=== PATIENT | female | born 1965 | race Caucasian/White ===

== ENCOUNTER 2018-08-10 16:43 | Inpatient (IN) | payer OTHER ==
[2018-08-10] MEDS ORDERED: 0.9 % SODIUM CHLORIDE 1000ML 1,000 ML IV PRN (16:54)
[2018-08-10] MEDS ORDERED: ALBUTEROL SULFATE (0.083%) 2.5 MG/3 ML NEB INH PRN (16:54)
[2018-08-10] MEDS ORDERED: ACETAMINOPHEN 325 MG TAB PO PRN (16:54)
--- NOTE | 2018-08-10 17:25 | History & Physical ---
History of Present Illness - Date of Service Date of Service for History & Physical: 08/10/18 - History of Present Illness Admitting Diagnosis: LLL pneumonia. Hypoxia History of Present Illness: Ayesha Weaver is a 53 y/o female presenting to [facility] for 3 week history of fever, cough, fatigue, and weakness. She is a current every day smoker, denies any previous hx of COPD or asthma. Does not use O2 at home. Past medical history includes insomnia, breast cancer s/p mastectomy, anxiety and depression. While in [facility] CXR LLL pneumonia, WBC 13.2, CMP unremarkable, D-Dimer 3.46- no recent surgeries, no active metastatic process, no recent long travels. Upon arrival SPO2 85% RA. She was placed on 4L O2 with SPO2 87-88%. Is mouth breathing, subsequently placed on 40% venti-mask. Albuterol nebulizer, Solumedrol 125mg IM given prior to transfer to the floor. Case discussed with Dr Andrew and will admit to inpatient for LLL pneumonia and hypoxia 08/10/12- Acutely ill, laying on exam table. Is easily arousable, in no obvious respirator distress. No improvement after receiving solumedrol, albuterol nebulizer. Review of Systems Constitutional: Reports: Chills, Malaise, Weakness Eyes: Reports: As per HPI. Denies: Eye discharge, Eye pain, Photophobia, Vision change ENT: Reports: Congestion Respiratory: Reports: Cough, Dyspnea Cardiovascular: Denies: Chest pain, Edema, Palpitations, Syncope Endocrine: Reports: Fatigue Gastrointestinal: Denies: Abdominal pain, Constipation, Diarrhea, Nausea, Vomiting Genitourinary: Denies: Discharge, Dysuria, Frequency, Urgency Musculoskeletal: Reports: Back pain (chronic) Skin: Reports: As per HPI. Denies: Bruising, Change in color, Change in hair/ nails, Lesions, Pruritus, Rash Neurological: Reports: Weakness. Denies: Confusion, Numbness Psychiatric: Reports: As per HPI. Denies: Anxiety, Auditory hallucinations, Depression, Homicidal thoughts, Suicidal thoughts, Visual hallucinations Hematological/Lymphatic: Reports: As per HPI H&P Meds/Allergies - Allergies Allergies: Allergies Allergy/AdvReac Type Severity Reaction Status Date / Time cephalexin monohydrate Allergy Unknown Unverified 08/10/18 14:08 [From [facility]] - Active Medications Active Medications: Current Medications Acetaminophen (Tylenol 325mg) 650 mg PO Q4H PRN PRN Reason: PAIN - MILD(1-4)/FEVER Albuterol Sulfate (Albuterol Sulfate) 2.5 mg INH RESP.Q2H PRN PRN Reason: DIFFICULTY IN BREATHING Albuterol/Ipratropium (Duoneb) 3 ml INH RESP.Q4H.WA [facility] Alprazolam (Xanax) 1 mg PO TID PRN PRN Reason: ANXIETY Azithromycin (Zithromax) 500 mg PO DAILY [facility] Benzonatate (Tessalon) 100 mg PO TID PRN PRN Reason: COUGH Enoxaparin Sodium (Lovenox) 40 mg SC DAILY [facility] Sodium Chloride () 1,000 mls @ 100 mls/hr IV .Q10H PRN PRN Reason: LARGE VOLUME IV CEFTRIAXONE 1GM/50ML BAG (Ceftriaxone 1 Gm-D5w Bag) 1 gm in 50 mls @ 100 mls/ hr IVPB Q12H [facility] Propranolol HCl (Inderal) 20 mg PO Q8HR [facility] Tramadol HCl (Ultram) 50 mg PO TID PRN PRN Reason: PAIN - MILD TO MODERATE (1-7) Trazodone HCl (Desyrel) 50 mg PO QHS [facility] Venlafaxine HCl (Effexor Xr) 75 mg PO DAILY [facility] Physical Exam - General General Appearance: Alert, Oriented x3, Other (acutely ill and fatigued, easily arousable ) Limitations: No limitations - Head Head exam: Atraumatic, Normocephalic - Eye Eye exam: Normal appearance, PERRL - ENT ENT exam: Mucous membranes moist Nasal Exam: Other (turbinates engorged, clear nasal discharge) Mouth exam: Normal external inspection Teeth exam: Normal inspection Throat exam: Other (pharyngeal erythema) - Neck Neck exam: Normal inspection - Respiratory Respiratory exam: Decreased breath sounds. negative: Respiratory distress, Wheezes - Cardiovascular Cardiovascular Exam: Regular rate, Normal rhythm, Normal heart sounds - GI/Abdominal GI/Abdominal exam: Soft, Normal bowel sounds - Extremities Extremities exam: Normal inspection. negative: Calf tenderness - Back Back exam: Reports: Normal inspection. Denies: CVA tenderness (R), CVA tenderness (L) - Neurological Neurological exam: Alert, Oriented X3 - Psychiatric Psychiatric exam: Normal affect, Normal mood - Skin Skin exam: Dry, Intact, Normal color, Warm Results - Labs Result Diagrams: 08/11/18 06:00 08/11/18 06:00 VTE H&P Assessment - Risk for VTE Risk for VTE: Yes Risk Level: Moderate Risk Assessment Date: 08/10/18 Risk Assessment Time: 17:29 VTE Orders Placed or Will Be Placed: Yes Plan - Inpatient Certification Inpatient Certification: Admit to inpatient care: Based on my medical assessment, after consideration of patient's risk factors (age, co-morbidities and patient presenting symptoms and acuity), I expect that this patient will remain in the hospital greater than or equal to two midnights and that the services needed warrant inpatient care because: Patient Risk Factors: [extended illness, IV antibiotics, hypoxia requiring oxygen] Estimated length of stay: [48-72 hrs] The patient may reasonably be expected to be discharged or transferred to a hospital within 96 hours after admission to [facility]. Services needed: [nursing, IV antibiotics] Post hospital care (if known): [] I certify that my determination is in accordance with my understanding of Medicare requirements for reasonable and necessary inpatient services. 08/10/18 17:29 - Detailed Diagnosis and Plan (1) LLL pneumonia Current Visit: Yes Status: Acute Base Code: J18.1 - LOBAR PNEUMONIA, UNSPECIFIED ORGANISM Comment: 08/10/18 - Rocephin 1gm BID - Azithromycin 500mg Po QD - O2 to keep SPO2 88-92%- assuming an underlying COPD with smoking history - Duo neb Q4hr WA - Albuterol Q2hr PRN - Tessalon Perles 100mg Q8prn for cough (2) Hypoxia Current Visit: Yes Status: Acute Base Code: R09.02 - HYPOXEMIA Comment: - as above - CTA now with elevated d--dimer (3) DVT prophylaxis Current Visit: Yes Status: Acute Base Code: [id number] - Comment: 08/10/18 - Lovenox 40mg QD (4) Full code status Current Visit: Yes Status: Acute Base Code: Z78.9 - OTHER SPECIFIED HEALTH STATUS Comment: 08/10/18
[2018-08-10] MEDS: IPRATROPIUM/ALBUTEROL (0.5MG/3MG) NEB INH SCH ×2 (17:38→21:36)
[2018-08-10] MEDS ORDERED: CEFTRIAXONE 1GM/50ML BAG 1 GM/50 ML BAG IVPB SCH (18:00)
[2018-08-10] MEDS: ENOXAPARIN 40 MG/0.4 ML SYR SC SCH (18:31)
[2018-08-10] MEDS: AZITHROMYCIN 500 MG TABLET PO SCH (18:32)
[2018-08-10] MEDS: BENZONATATE 100 MG CAPSULE PO PRN (18:44)
[2018-08-10] MEDS: ALPRAZOLAM 1 MG TAB PO PRN (18:44)
[2018-08-10] MEDS: TRAMADOL HCL 50 MG TABLET PO PRN (18:45)
[2018-08-10 18:56] LABS: NTpro B-NATRIURETIC PEPTIDE 47.39 pg/mL (<125)
[2018-08-10] MEDS: NICOTINE 21 MG/24 HOUR PATCH TD SCH (20:02)
[2018-08-10] MEDS ORDERED: METHYLPREDNISOLONE PF 125MG/VIAL IVP ONE (20:55)
[2018-08-10] MEDS ORDERED: CEFTRIAXONE 1GM/50ML BAG 1 GM/50 ML BAG IVPB ONE (21:06)
[2018-08-10] MEDS: TRAZODONE 50 MG TABLET PO SCH (21:19)
[2018-08-10] MEDS: GUAIFENESIN 1,200 MG TABLET PO SCH (21:19)
[2018-08-10 21:35] LABS: INFLUENZA A NEGATIVE (NEGATIVE); INFLUENZA B NEGATIVE (NEGATIVE)
[2018-08-10] MEDS: ACETYLCYSTEINE 20% INH SCH (21:36)
[2018-08-11] MEDS: TRAMADOL HCL 50 MG TABLET PO PRN ×2 (03:22→09:53)
[2018-08-11] MEDS: IPRATROPIUM/ALBUTEROL (0.5MG/3MG) NEB INH SCH ×5 (05:55→21:43)
[2018-08-11] MEDS: ACETYLCYSTEINE 20% INH SCH (05:55)
[2018-08-11] MEDS ORDERED: PROPRANOLOL HCL 10 MG TABLET PO SCH (06:00)
[2018-08-11 06:38] LABS: BASO % 0.3 % (0-6); HEMATOCRIT 43.1 % (35.0-47.0); HEMOGLOBIN 14.4 gm/dl (11.6-16.0); LYMPH % 9.8 % (16-45); MEAN CELL VOLUME 92.3 fl (81-97); MEAN CORPUSCULAR HEMOGLOBIN 30.8 pg (27-33); MEAN CORPUSCULAR HGB CONC 33.4 g/dl (32-36); MEAN PLATELET VOLUME 9.9 fl (7.4-10.4); MONO % 2.2 % (0-9); PLATELET COUNT 535 K/uL (130-400); RED BLOOD COUNT 4.67 M/uL (3.80-5.40); RED CELL DISTRIBUTION WIDTH 14.7 % (11.5-14.5); WHITE BLOOD COUNT W/O DIFF 11.1 K/uL (4.2-12.2)
[2018-08-11 07:06] LABS: ALB/GLOB RATIO 0.8 (1.1-1.8); ALBUMIN 3.3 g/dL (4.0-5.0); ALKALINE PHOSPHATASE 119 U/L (35-104); ALT/SGPT 29 U/L (<33); AST/SGOT 17 U/L (10.0-35.0); BILIRUBIN,TOTAL < 0.20 mg/dL (0.2-1.0); BLOOD UREA NITROGEN 16 mg/dL (6-20); CREATININE 0.6 mg/dL (0.5-0.9); EST GLOMERULAR FILTRATION RATE > 60 mL/min; GLUCOSE,RANDOM 140 mg/dL (74-109); TOTAL PROTEIN 7.3 g/dL (6.6-8.7)
--- NOTE | 2018-08-11 07:25 | CT ANGIOGRAM REPORT ---
EXAM: CT ANGIOGRAM OF THE CHEST WITH CONTRAST HISTORY: SHORTNESS OF BREATH. HISTORY OF SMOKING AND BREAST CANCER. TECHNIQUE: Helical CT angiogram of the chest was obtained after the administration of intravenous contrast, the type and amount are specified in the patient's medical record. Coronal and sagittal maximum intensity projection images were obtained. Comparison: None. FINDINGS: No filling defects are identified in the pulmonary arteries. The aorta has normal caliber, moderate atherosclerosis of the descending thoracic aorta. The cardiac chambers have a normal size, moderate coronary artery calcifications. No pericardial effusion. The lung parenchyma shows bilateral lower lobe consolidation. There is mucous plugging in the airways of both lower lobes and diffuse peribronchial thickening. Moderate emphysematous changes are present. Mildly enlarged mediastinal nodes measure up to 19 mm AP diameter in the subcarinal region. Hilar nodes are also mildly enlarged. Surgical clips in the right axilla. Bony structures show no suspicious lesions. IMPRESSION: NO EVIDENCE OF PULMONARY EMBOLISM. 2. BILATERAL LOWER LOBE CONSOLIDATION. THERE ARE MODERATE EMPHYSEMATOUS CHANGES AND DIFFUSE PERIBRONCHIAL THICKENING, CONSISTENT WITH BRONCHITIS. MODERATE EMPHYSEMATOUS CHANGES ARE PRESENT. JOB NUMBER: [id number] [facility]
[2018-08-11] MEDS ORDERED: CEFTRIAXONE SODIUM 2 GM in 0.9 % SODIUM CHLORIDE 100ML 100 ML IVPB SCH (08:00)
--- NOTE | 2018-08-11 08:30 | History and Physical Report ---
DATE OF ADMISSION: 08/10/2018, 9:18 p.m. CHIEF COMPLAINT: Cough and dyspnea. HISTORY OF PRESENT ILLNESS: This 53-year-old female presented to our [facility] short of breath, cough, and congested. She stated that this has been going on for about a week and a half. Initially, she was seen at the [facility] in [place], thought it was a kidney problem with bilateral back pain. Had an ultrasound of her kidneys and a urine, which did not show any kidney infection. Things got worse about 2 days, and that it when she decided to come into our [facility] and was evaluated by Seema, and her pulse oximetry was low. She has a history of smoking cigarettes, and she has been coughing up green-yellow sputum for about a week, and getting weaker. No vomiting or diarrhea. Seema called me in the ER and said that the patient does not want to go to the emergency department because she does not want to pay the copay and was wondering if she could be direct admitted to the floor, and I said fine. She was direct admitted to the floor for pneumonia. She had a chest x-ray, which showed a left lower lobe infiltrate, and she had a CTA of the chest because a D-dimer was elevated, revealing no PE but bilateral lower lobe infiltrates. The laboratory revealed white count of 13,200. Hemoglobin is 14.9. D-dimer is 3.46. Neutrophils are 70. Bands are 0. Lymphs are 18. Potassium is 3.7. BUN is 13. Creatinine is 0.7. Her ALT was 34, alkaline phosphatase 136. ProBNP was 47. Troponin-T was less than 0.01. She had a procalcitonin of 0.04. Flu A and B were ordered when I saw the patient, and she also had 1 shot of Solu-Medrol 125 mg IM in the [facility], and I ordered another Solu-Medrol 60 mg IV. I bumped up her Rocephin to 2 grams every 12 hours, continued the azithromycin 500 mg daily. She had a DuoNeb treatment. She is requiring 45% on a venti mask, and her pulse oximetry is running 90%. Her was at the bedside, giving me most of her history. The patient stated that she felt better since being in the [facility] to the time I evaluated her at about 8:30 p.m. PAST MEDICAL HISTORY: Right breast cancer with a right mastectomy. Also, the left breast has been removed, too. Hysterectomy. She also had neck surgery with a plate, and back surgeries. She uses some narcotics for her back pain. She has some depression. She had an MRSA infection back when she had surgery at [facility] by Dr. Burgos. CURRENT MEDICATIONS: 1. Trazodone 50 mg at bedtime. 2. Tramadol 50 mg t.i.d. p.r.n. pain. 3. Xanax 1 mg t.i.d. p.r.n. 4. Effexor 75 mg daily. 5. Propranolol LA 60 mg daily. ALLERGIES: She does not have any allergies. It says Keflex on her chart, but she said she has never been allergic to Keflex, but one time it did not work. SOCIAL HISTORY: She smoked cigarettes, less than a pack a day, for 30+ years. Occasional alcohol use. No drug use. FAMILY HISTORY: Mother had cancer and heart disease. Brother and sister had heart disease. SYSTEMS REVIEW: HEENT: She has had a cough, cold, and congestion for the last 1-1/2 weeks. She denies a sore throat except when she coughs. Cardiovascular: No chest pain, palpitations. She is short of breath, and she has back pain bilaterally, most likely from the pneumonia. Respiratory: She has a cough. She has smoking history. Gastrointestinal: No nausea, vomiting, or diarrhea. She is coughing up yellow sputum. Genitourinary: No dysuria, hematuria, frequency, or burning on urination. Musculoskeletal: She has bilateral back pain. Neurologic: No CVA, paralysis, or paresthesias. Mental status is good. Endocrine: No diabetes or thyroid disease. No weight loss or weight changes. Integument: No rash, ulcers, change in moles, or yellow skin. PHYSICAL EXAMINATION: VITAL SIGNS: Height 5 feet 4 inches. Weight 149 pounds. Her pulse rate was 102 when she came in. Respiratory rate 16. Pulse oximetry 92% on a venti mask at 45% FiO2. Blood pressure 141/90. HEENT: Pupils equal, round, and reactive to light and accommodation. Extraocular muscles intact. Throat is clear, some posterior nasal drainage. NECK: Supple. No jugular venous distention. No hepatojugular reflex. No carotid bruits. LUNGS: She has rhonchi bilaterally in the posterior bases. HEART: Regular rate and rhythm without murmurs, clicks, rubs, or gallops. ABDOMEN: Soft, nontender. No hepatosplenomegaly. No masses. Bowel sounds are present. EXTREMITIES: No pitting edema, no cyanosis, no clubbing. BREASTS: Deferred. GYNECOLOGICAL: Deferred. RECTAL: Deferred. NEUROLOGIC: Cranial nerves II through XII intact. No gross defects. Sensation is normal. Strength is normal. Deep tendon reflexes are equal bilaterally. Babinski is negative. MENTAL STATUS: Alert and oriented x3. IMPRESSION: 1. Bilateral pneumonia. 2. Tobacco use. 3. History of right breast cancer with bilateral mastectomies. 4. History of chronic neck and back pain with occasional use of tramadol. 5. Anxiety and depression. PLAN: IV Rocephin 2 grams every 12 hours, oral azithromycin 500 mg daily, IV fluids cautiously, 100 mL an hour; oxygen at 45% venti mask to keep her pulse oximetry above 90%, DuoNebs every 4 hours while awake, Mucomyst 3 mL 4 times a day to help mobilize sputum, Lovenox 40 mg subcu DVT prophylaxis daily, Mucinex 600 mg b.i.d., one more shot of Solu-Medrol 60 mg IV; may continue on tomorrow if she does not improve more; nicotine patches, and her home medications of Effexor and Desyrel. MTDD
[2018-08-11] MEDS: CEFTRIAXONE SODIUM 2 GM in 0.9 % SODIUM CHLORIDE 100ML 100 ML IVPB SCH ×2 (08:56→21:58)
[2018-08-11] MEDS: ENOXAPARIN 40 MG/0.4 ML SYR SC SCH (09:49)
[2018-08-11] MEDS: VENLAFAXINE ER 75 MG CAPSULE PO SCH (09:49)
[2018-08-11] MEDS: GUAIFENESIN 1,200 MG TABLET PO SCH ×2 (09:49→22:00)
[2018-08-11] MEDS: AZITHROMYCIN 500 MG TABLET PO SCH (09:49)
[2018-08-11] MEDS: BENZONATATE 100 MG CAPSULE PO PRN (09:53)
[2018-08-11] MEDS: ALPRAZOLAM 1 MG TAB PO PRN (09:53)
[2018-08-11] MEDS ORDERED: CYCLOBENZAPRINE 10MG TABLET PO PRN (10:54)
[2018-08-11] MEDS ORDERED: ALPRAZOLAM 1 MG TAB PO PRN (11:16)
--- NOTE | 2018-08-11 11:16 | Physician Progress Note ---
Subjective - Date Date of Physician Progress Note: 08/11/18 - Subjective Subjective Comment: 08/11/18: Reports that she is breathing better, but is not 100%. Is not coughing as much as before. Having alot of pain in back d/t chronic issues. States that she also takes Robaxin 750mg TID, which has not received. Is concerned with sleeping. States that she has to take Xanax 1mg and Trazodone 50mg to sleep. Reports that she has some PTSD and has trouble sleeping because of it. Denies bowel or bladder problems. Respiratory therapist working on decreasing oxygen needs. Location: Back Severity scale (1-10): 9 Objective - Vital Signs Vital Signs: Vital Signs - Last 24 Hrs Temp Pulse Pulse Resp BP BP Pulse Ox 08/11/18 10:12 83 20 93 L 08/11/18 10:00 97.9 F 88 16 143/92 92 L 08/11/18 09:51 97.7 F 148/95 08/11/18 05:58 86 20 08/11/18 05:57 84 20 92 L 08/11/18 03:28 97.7 F 95 H 18 148/95 93 L 08/10/18 21:38 78 16 08/10/18 21:37 74 16 94 L 08/10/18 21:00 16 08/10/18 20:00 97.8 F 100 H 20 132/83 91 L 08/10/18 19:01 97 H 16 08/10/18 17:37 92 L 08/10/18 17:35 102 H 16 08/10/18 17:03 97 H 19 141/90 90 L - General General Appearance: Alert, Oriented x3, Other (acutely ill and fatigued, easily arousable ) Limitations: No limitations - Head Head exam: Atraumatic, Normocephalic - Eye Eye exam: Normal appearance, PERRL - ENT ENT exam: Mucous membranes moist Nasal Exam: Other (turbinates engorged, clear nasal discharge) Mouth exam: Normal external inspection Teeth exam: Normal inspection Throat exam: Other (pharyngeal erythema) - Neck Neck exam: Normal inspection - Respiratory Respiratory exam: Decreased breath sounds, Other (At time of assessment, was changed from Venti-mask to 15 L High-Flow nasal cannula and able to have full sentence conversations without difficulty. ). negative: Accessory muscle use, Respiratory distress, Wheezes - Cardiovascular Cardiovascular Exam: Regular rate, Normal rhythm, Normal heart sounds - GI/Abdominal GI/Abdominal exam: Soft, Normal bowel sounds - Extremities Extremities exam: Normal inspection. negative: Calf tenderness - Back Back exam: Reports: Normal inspection. Denies: CVA tenderness (R), CVA tenderness (L) - Neurological Neurological exam: Alert, Oriented X3 - Psychiatric Psychiatric exam: Normal affect, Normal mood - Skin Skin exam: Dry, Intact, Normal color, Warm Assessment and Plan - Assessment and Plan (1) Bilateral pneumonia Current Visit: Yes Status: Acute Base Code: J18.9 - PNEUMONIA, UNSPECIFIED ORGANISM Comment: 08/11/18: -CXR: BLL PNA, WBC 11.1, Neutrophils 86%, procalcitonin 0.027 -Continue IV Rocephin 2gm q. 12 hours -Continue oral Azithromycin 500mg daily -Stop IVF, pt has adequate oral intake -Respiratory therapy to continue working with nursing staff to reduce oxygen supplementation needs -Duonebs q. 4 hours while awake -Mucinex 600mg BID -Oral Prednisone 50mg daily x 5 doses -Testia akins for cough (2) Tobacco use Current Visit: Yes Status: Acute Base Code: Z72.0 - TOBACCO USE Comment: : -Continue nicotine patches (3) Chronic pain Current Visit: Yes Status: Acute Base Code: G89.29 - OTHER CHRONIC PAIN Comment: 08/11/18: -Chronic pain in neck and pain, has had several surgeries. -Continue home dose of Tramadol 50mg TID PRN -Home med Robaxin not on formulary, trial Flexeril 10mg PRN -Trial Toradol IV q. 12 hours (creatinine, GFR WNL) -Continue Tylenol 650mg PRN (4) Sleep disturbance Current Visit: Yes Status: Acute Base Code: G47.9 - SLEEP DISORDER, UNSPECIFIED Comment: 08/11/18: -Continue home med Trazodone 50mg q. HS -Trial Prazosin 2mg at HS (BP 143/92) -Schedule lower dose of Xanax at 0.25mg @ HS d/t addition of Prazosin (5) Hypoxia Current Visit: Yes Status: Acute Base Code: R09.02 - HYPOXEMIA Comment: : -Changed from Venti-mask to 15 L High-Flow nasal cannula @ approximately 1000 and able to maintain O2 sat above 92% -Nursing and Respiratory Therapy to wean off of oxygen supplementation needs -Continue IV and PO Antibiotics, steroids (now PO) and Duonebs (6) DVT prophylaxis Current Visit: Yes Status: Acute Base Code: [id number] - Comment: 08/11/18: -Continue Lovenox daily 08/10/18 - Lovenox 40mg QD (7) Full code status Current Visit: Yes Status: Acute Base Code: Z78.9 - OTHER SPECIFIED HEALTH STATUS Comment: 08/11/18: -Full Code this admission Results - Labs Result Diagrams: 08/11/18 06:04 08/11/18 06:04 Labs Last 24 Hours: Laboratory Results - last 24 hr 08/10/18 08/10/18 08/11/18 17:56 21:35 06:04 WBC 11.1 RBC 4.67 Hgb 14.4 Hct 43.1 MCV 92.3 MCH 30.8 MCHC 33.4 RDW 14.7 H Plt Count 535 H MPV 9.9 Neutrophils % 86.0 H Band Neutrophils % 2.0 Lymphocytes % 9.8 L Monocytes % 2.2 Eosinophils % 0.0 Basophils % 0.3 Lymphocytes 10.0 L Monocytes 2.0 Basophils 0.0 Eosinophil Count 0.0 Sodium Potassium Chloride Carbon Dioxide Anion Gap BUN Creatinine Estimated GFR Random Glucose Calcium Total Bilirubin AST ALT Alkaline Phosphatase Troponin T < 0.010 NT-Pro-B Natriuret Pep 47.39 Total Protein Albumin Globulin Albumin/Globulin Ratio Procalcitonin Influenza Type A Ag Negative Influenza Type B Ag Negative 08/11/18 08/11/18 06:04 06:04 WBC RBC Hgb Hct MCV MCH MCHC RDW Plt Count MPV Neutrophils % Band Neutrophils % Lymphocytes % Monocytes % Eosinophils % Basophils % Lymphocytes Monocytes Basophils Eosinophil Count Sodium 137 Potassium 4.0 Chloride 103 Carbon Dioxide 22.0 Anion Gap 12.0 BUN 16 Creatinine 0.6 Estimated GFR > 60 Random Glucose 140 H Calcium 9.1 Total Bilirubin < 0.20 L AST 17 ALT 29 Alkaline Phosphatase 119 H Troponin T NT-Pro-B Natriuret Pep Total Protein 7.3 Albumin 3.3 L Globulin 4.0 Albumin/Globulin Ratio 0.8 L Procalcitonin 0.027 Cancelled Influenza Type A Ag Influenza Type B Ag DVT/PE Assessment - Risk for VTE Risk for VTE: Yes Risk Level: Moderate Risk Assessment Date: 08/10/18 Risk Assessment Time: 17:29 VTE Orders Placed or Will Be Placed: Yes - Active Medicaitons Current Medications: Current Medications Acetaminophen (Tylenol 325mg) 650 mg PO Q4H PRN PRN Reason: PAIN - MILD(1-4)/FEVER Albuterol Sulfate (Albuterol Sulfate) 2.5 mg INH RESP.Q2H PRN PRN Reason: DIFFICULTY IN BREATHING Albuterol/Ipratropium (Duoneb) 3 ml INH RESP.Q4H.[facility] Last Admin: 08/11/18 09:59 Dose: 3 ml Alprazolam (Xanax) 1 mg PO TID PRN PRN Reason: ANXIETY Last Admin: 08/11/18 09:53 Dose: 1 mg Azithromycin (Zithromax) 500 mg PO DAILY [facility] Last Admin: 08/11/18 09:49 Dose: 500 mg Benzonatate (Tessalon) 100 mg PO TID PRN PRN Reason: COUGH Last Admin: 08/11/18 09:53 Dose: 100 mg Cyclobenzaprine HCl (Flexeril) 10 mg PO BID PRN PRN Reason: MUSCLE SPASMS Enoxaparin Sodium (Lovenox) 40 mg SC DAILY [facility] Last Admin: 08/11/18 09:49 Dose: 40 mg Guaifenesin (Mucinex) 1,200 mg PO BID [facility] Last Admin: 08/11/18 09:49 Dose: 1,200 mg Sodium Chloride () 1,000 mls @ 100 mls/hr IV .Q10H PRN PRN Reason: LARGE VOLUME IV Last Admin: 08/10/18 18:33 Dose: 100 mls/hr Ceftriaxone Sodium 2 gm/ (Sodium Chloride) 100 mls @ 200 mls/hr IVPB Q12H [facility] Stop: 08/16/18 09:01 Last Infusion: 08/11/18 09:47 Dose: Infused Ketorolac Tromethamine (Toradol) 30 mg IVP Q12H PRN PRN Reason: PAIN - MILD TO MODERATE (1-7) Nicotine (Nicotine 21mg) 1 patch TD Q24H [facility] Last Admin: 08/10/18 20:02 Dose: 1 patch Prazosin HCl (Prazosin Hcl) 2 mg PO QHS [facility] Prednisone (Prednisone 20mg) 50 mg PO DAILYWM [facility] Stop: 08/16/18 08:01 Propranolol HCl (Inderal) 20 mg PO Q8HR [facility] Last Admin: 08/11/18 05:50 Dose: 20 mg Tramadol HCl (Ultram) 50 mg PO TID PRN PRN Reason: PAIN - MILD TO MODERATE (1-7) Last Admin: 08/11/18 09:53 Dose: 50 mg Trazodone HCl (Desyrel) 50 mg PO QHS [facility] Last Admin: 08/10/18 21:19 Dose: 50 mg Venlafaxine HCl (Effexor Xr) 75 mg PO DAILY [facility] Last Admin: 08/11/18 09:49 Dose: 75 mg AMI Plan - Labs Result Diagrams: 08/11/18 06:04 08/11/18 06:04
[2018-08-11] MEDS: KETOROLAC 30 MG/ML VIAL IVP PRN (14:13)
[2018-08-11] MEDS: TRAZODONE 50 MG TABLET PO SCH (21:58)
[2018-08-11] MEDS: NICOTINE 21 MG/24 HOUR PATCH TD SCH (21:58)
[2018-08-11] MEDS: ALPRAZOLAM 0.25 MG TABLET PO SCH (21:59)
[2018-08-11] MEDS ORDERED: PRAZOSIN HCL 1 MG CAPSULE PO SCH (22:00)
[2018-08-12] MEDS: IPRATROPIUM/ALBUTEROL (0.5MG/3MG) NEB INH SCH ×5 (05:55→22:13)
[2018-08-12] MEDS: KETOROLAC 30 MG/ML VIAL IVP PRN (06:15)
[2018-08-12 07:01] LABS: HEMATOCRIT 41.9 % (35.0-47.0); HEMOGLOBIN 13.9 gm/dl (11.6-16.0); MEAN CELL VOLUME 92.1 fl (81-97); MEAN CORPUSCULAR HEMOGLOBIN 30.5 pg (27-33); MEAN CORPUSCULAR HGB CONC 33.2 g/dl (32-36); MEAN PLATELET VOLUME 9.5 fl (7.4-10.4); PLATELET COUNT 545 K/uL (130-400); RED BLOOD COUNT 4.55 M/uL (3.80-5.40)
[2018-08-12 07:10] LABS: PLATELET ESTIMATE INCREASED (NORMAL)
[2018-08-12 07:34] LABS: ALB/GLOB RATIO 0.9 (1.1-1.8); ALBUMIN 3.3 g/dL (4.0-5.0); ALKALINE PHOSPHATASE 112 U/L (35-104); ALT/SGPT 29 U/L (<33); AST/SGOT 17 U/L (10.0-35.0); BLOOD UREA NITROGEN 16 mg/dL (6-20); CREATININE 0.6 mg/dL (0.5-0.9); EST GLOMERULAR FILTRATION RATE > 60 mL/min; GLUCOSE,RANDOM 110 mg/dL (74-109)
[2018-08-12] MEDS ORDERED: PREDNISONE 20 MG TAB PO SCH (08:00)
[2018-08-12] MEDS: CEFTRIAXONE SODIUM 2 GM in 0.9 % SODIUM CHLORIDE 100ML 100 ML IVPB SCH (09:07)
[2018-08-12] MEDS: ENOXAPARIN 40 MG/0.4 ML SYR SC SCH (10:04)
[2018-08-12] MEDS: AZITHROMYCIN 500 MG TABLET PO SCH (10:04)
[2018-08-12] MEDS: VENLAFAXINE ER 75 MG CAPSULE PO SCH (10:04)
[2018-08-12] MEDS: GUAIFENESIN 1,200 MG TABLET PO SCH ×2 (10:04→22:12)
--- NOTE | 2018-08-12 14:44 | Physician Progress Note ---
Subjective - Date Date of Physician Progress Note: 08/12/18 - Subjective Subjective Comment: 08/11/18: Reports that she is breathing better, but is not 100%. Is not coughing as much as before. Having alot of pain in back d/t chronic issues. States that she also takes Robaxin 750mg TID, which has not received. Is concerned with sleeping. States that she has to take Xanax 1mg and Trazodone 50mg to sleep. Reports that she has some PTSD and has trouble sleeping because of it. Denies bowel or bladder problems. Respiratory therapist working on decreasing oxygen needs. 08/12/18 1430: Sitting up in bed, with family member at bedside. States that she is feeling a little worse today and is coughing up alot. Feels that breathing is a little easier. Reports that Toradol has helped the most of all pain medications. Would like to see Xanax, Tramadol and Toradol on a schedule so she does not have to ask for it. Is frustrated that oxygen is still at 6L. Is worried she is getting addicted to it. Denies chest pain, SOB, LE edema. No issues with bowel or bladder. Objective - Vital Signs Vital Signs: Vital Signs - Last 24 Hrs Temp Pulse Pulse Resp BP Pulse Ox 08/12/18 14:20 98 H 18 97 08/12/18 12:00 98.2 F 103 H 17 142/88 92 L 08/12/18 10:19 92 L 08/12/18 10:17 89 20 93 L 08/12/18 08:19 88 22 08/12/18 06:05 93 L 08/12/18 05:55 94 H 24 08/12/18 04:00 74 22 144/89 93 L 08/11/18 21:43 95 H 20 95 08/11/18 21:00 74 20 08/11/18 20:00 98.0 F 74 22 144/88 95 08/11/18 18:07 80 18 94 L - General General Appearance: Alert, Oriented x3, Mild distress Limitations: No limitations - Head Head exam: Atraumatic, Normocephalic - Eye Eye exam: Normal appearance, PERRL - ENT ENT exam: Mucous membranes moist Nasal Exam: Other Mouth exam: Normal external inspection Teeth exam: Normal inspection - Neck Neck exam: Normal inspection - Respiratory Respiratory exam: Decreased breath sounds, Other (At time of assessment, was changed from Venti-mask to 15 L High-Flow nasal cannula and able to have full sentence conversations without difficulty. ). negative: Accessory muscle use, Respiratory distress, Wheezes - Cardiovascular Cardiovascular Exam: Regular rate, Normal rhythm, Normal heart sounds - GI/Abdominal GI/Abdominal exam: Soft, Normal bowel sounds - Extremities Extremities exam: Normal inspection. negative: Calf tenderness, Pedal edema - Back Back exam: Reports: Normal inspection. Denies: CVA tenderness (R), CVA tenderness (L) - Neurological Neurological exam: Alert, Oriented X3 - Psychiatric Psychiatric exam: Anxious, Normal affect - Skin Skin exam: Dry, Intact, Normal color, Warm Assessment and Plan - Assessment and Plan (1) Bilateral pneumonia Current Visit: Yes Status: Acute Base Code: J18.9 - PNEUMONIA, UNSPECIFIED ORGANISM Comment: 08/12/18: -WBC 11, Neutrophils 73% -Sputum culture pending -IV Rocephin reduced from 2g to 1g q. 12 -Continue oral Azithromycin 500mg daily -Respiratory therapy to continue working with nursing staff to reduce oxygen supplementation needs -Currently at 6L high flow -Duonebs q. 4 hours while awake -Mucinex 1200mg BID -Reduced oral prednisone to 20mg daily d/t jitteriness and inability to rest -Christiana akins for cough -Encouraged getting up out of bed and doing coughing/deep breathing exercises (2) Tobacco use Current Visit: Yes Status: Acute Base Code: Z72.0 - TOBACCO USE Comment: : -Continue nicotine patches (3) Chronic pain Current Visit: Yes Status: Acute Base Code: G89.29 - OTHER CHRONIC PAIN Comment: 08/12/18: -Chronic pain in neck and pain, has had several surgeries. -Continue home med Tramadol 50mg, changed from PRN to scheduled -Continue Flexeril 10mg PRN -Toradol reduced from 30mg to 15mg IV q. 12 hours scheduled for renal safety -Continue Tylenol 650mg PRN (4) Sleep disturbance Current Visit: Yes Status: Acute Base Code: G47.9 - SLEEP DISORDER, UNSPECIFIED Comment: 08/12/18: -Continue home med Trazodone 50mg q. HS -Increase Prazosin from 2mg to 5mg at HS -Schedule lower dose of Xanax at 0.25mg @ HS d/t addition of Prazosin (5) Hypoxia Current Visit: Yes Status: Acute Base Code: R09.02 - HYPOXEMIA Comment: 1518: -6L O2 per high flow NC at assessment -Nursing and Respiratory Therapy to wean off of oxygen supplementation needs -Continue IV and PO Antibiotics, steroids (now PO) and Duonebs (6) DVT prophylaxis Current Visit: Yes Status: Acute Base Code: [id number] - Comment: 08/12/18: -Continue Lovenox daily (7) Full code status Current Visit: Yes Status: Acute Base Code: Z78.9 - OTHER SPECIFIED HEALTH STATUS Comment: 08/12/18: -Full Code this admission Results - Labs Result Diagrams: 08/12/18 06:34 08/12/18 06:34 Labs Last 24 Hours: Laboratory Results - last 24 hr 08/12/18 08/12/18 08/12/18 06:34 06:34 06:34 WBC 11.0 Cancelled Corrected WBC Cancelled RBC 4.55 Cancelled Hgb 13.9 Cancelled Hct 41.9 Cancelled MCV 92.1 Cancelled MCH 30.5 Cancelled MCHC 33.2 Cancelled RDW 15.0 H Cancelled Plt Count 545 H Cancelled MPV 9.5 Cancelled Gran % Cancelled Neutrophils % 73.0 Cancelled Band Neutrophils % 21.0 H Cancelled Lymphocytes % Cancelled Monocytes % Cancelled Eosinophils % Not Reportable Cancelled Basophils % Not Reportable Cancelled Lymphocytes 5.0 L Cancelled Monocytes 1.0 Cancelled Basophils Cancelled Metamyelocytes Cancelled Myelocytes Cancelled Promyelocytes Cancelled Nucleated RBCs Cancelled Differential Comment Cancelled Hypersegmented Polys Cancelled Plasma Cells Cancelled Other Cell Type Cancelled Toxic Granulation Cancelled Dohle Bodies Cancelled Sandra Rods Cancelled Platelet Estimate Increased Cancelled RBC Morphology Cancelled Polychromasia Cancelled Hypochromasia Cancelled Poikilocytosis Cancelled Basophilic Stippling Cancelled Anisocytosis Cancelled Microcytosis Cancelled Macrocytosis Cancelled Spherocytes Cancelled Sickle Cells Cancelled Target Cells Cancelled Tear Drop Cells Cancelled Ovalocytes Cancelled Stomatocytes Cancelled Helmet Cells Cancelled [place] Bodies Cancelled [place] Rings Cancelled Alicia Cells Cancelled Acanthocytes (Spur) Cancelled Rouleaux Cancelled Schistocytes Cancelled Morphology Comment Cancelled Eosinophil Count Cancelled Sodium 142 Potassium 3.5 Chloride 108 H Carbon Dioxide 22.0 Anion Gap 12.0 BUN 16 Creatinine 0.6 Estimated GFR > 60 Random Glucose 110 H Calcium 8.9 Total Bilirubin 0.20 AST 17 ALT 29 Alkaline Phosphatase 112 H Total Protein 7.0 Albumin 3.3 L Globulin 3.7 Albumin/Globulin Ratio 0.9 L DVT/PE Assessment - Risk for VTE Risk for VTE: No Risk Level: Moderate Risk Assessment Date: 08/10/18 Risk Assessment Time: 17:29 VTE Orders Placed or Will Be Placed: Yes - Active Medicaitons Current Medications: Current Medications Acetaminophen (Tylenol 325mg) 650 mg PO Q4H PRN PRN Reason: PAIN - MILD(1-4)/FEVER Albuterol Sulfate (Albuterol Sulfate) 2.5 mg INH RESP.Q2H PRN PRN Reason: DIFFICULTY IN BREATHING Albuterol/Ipratropium (Duoneb) 3 ml INH RESP.Q4H.[facility] Last Admin: 08/12/18 14:18 Dose: 3 ml Alprazolam (Xanax) 1 mg PO BID PRN PRN Reason: ANXIETY Alprazolam (Xanax) 0.25 mg PO QHS [facility] Last Admin: 08/11/18 21:59 Dose: 0.25 mg Azithromycin (Zithromax) 500 mg PO DAILY [facility] Last Admin: 08/12/18 10:04 Dose: 500 mg Benzonatate (Tessalon) 100 mg PO TID PRN PRN Reason: COUGH Last Admin: 08/11/18 09:53 Dose: 100 mg Cyclobenzaprine HCl (Flexeril) 10 mg PO BID PRN PRN Reason: MUSCLE SPASMS Last Admin: 08/11/18 14:13 Dose: 10 mg Enoxaparin Sodium (Lovenox) 40 mg SC DAILY [facility] Last Admin: 08/12/18 10:04 Dose: 40 mg Guaifenesin (Mucinex) 1,200 mg PO BID [facility] Last Admin: 08/12/18 10:04 Dose: 1,200 mg Sodium Chloride () 1,000 mls @ 100 mls/hr IV .Q10H PRN PRN Reason: LARGE VOLUME IV Last Admin: 08/10/18 18:33 Dose: 100 mls/hr Ceftriaxone Sodium 2 gm/ (Sodium Chloride) 100 mls @ 200 mls/hr IVPB Q12H [facility] Stop: 08/16/18 09:01 Last Infusion: 08/12/18 09:58 Dose: Infused Ketorolac Tromethamine (Toradol) 30 mg IVP Q12H PRN PRN Reason: PAIN - MILD TO MODERATE (1-7) Last Admin: 08/12/18 06:15 Dose: 30 mg Nicotine (Nicotine 21mg) 1 patch TD Q24H [facility] Last Admin: 08/11/18 21:58 Dose: Not Given Prazosin HCl (Prazosin Hcl) 2 mg PO QHS [facility] Last Admin: 08/11/18 21:59 Dose: 2 mg Prednisone (Prednisone 20mg) 50 mg PO DAILYWM [facility] Stop: 08/16/18 08:01 Last Admin: 08/12/18 07:51 Dose: 50 mg Propranolol HCl (Inderal) 20 mg PO Q8HR [facility] Last Admin: 08/11/18 05:50 Dose: 20 mg Tramadol HCl (Ultram) 50 mg PO TID PRN PRN Reason: PAIN - MILD TO MODERATE (1-7) Last Admin: 08/11/18 09:53 Dose: 50 mg Trazodone HCl (Desyrel) 50 mg PO QHS [facility] Last Admin: 08/11/18 21:58 Dose: 50 mg Venlafaxine HCl (Effexor Xr) 75 mg PO DAILY [facility] Last Admin: 08/12/18 10:04 Dose: 75 mg AMI Plan - Labs Result Diagrams: 08/12/18 06:34 08/12/18 06:34
[2018-08-12] MEDS: TRAMADOL HCL 50 MG TABLET PO SCH ×3 (18:27→22:12)
[2018-08-12] MEDS ORDERED: PRAZOSIN HCL 1 MG CAPSULE PO SCH (22:00)
[2018-08-12] MEDS: ALPRAZOLAM 0.25 MG TABLET PO SCH (22:12)
[2018-08-12] MEDS: TRAZODONE 50 MG TABLET PO SCH (22:17)
[2018-08-12] MEDS: KETOROLAC 30 MG/ML VIAL IVP SCH (22:18)
[2018-08-12] MEDS: CEFTRIAXONE 1GM/50ML BAG IVPB SCH (22:26)
[2018-08-12] MEDS: NICOTINE 21 MG/24 HOUR PATCH TD SCH (22:31)
[2018-08-13] MEDS: IPRATROPIUM/ALBUTEROL (0.5MG/3MG) NEB INH SCH ×3 (06:21→14:56)
[2018-08-13] MEDS ORDERED: PREDNISONE 20 MG TAB PO SCH (08:00)
[2018-08-13] MEDS: CEFTRIAXONE 1GM/50ML BAG IVPB SCH (09:23)
[2018-08-13] MEDS: KETOROLAC 30 MG/ML VIAL IVP SCH (09:23)
[2018-08-13] MEDS: ENOXAPARIN 40 MG/0.4 ML SYR SC SCH (09:25)
[2018-08-13] MEDS: GUAIFENESIN 1,200 MG TABLET PO SCH (09:26)
[2018-08-13] MEDS: TRAMADOL HCL 50 MG TABLET PO SCH (09:26)
[2018-08-13] MEDS: VENLAFAXINE ER 75 MG CAPSULE PO SCH (09:26)
[2018-08-13] MEDS: AZITHROMYCIN 500 MG TABLET PO SCH (09:26)
[2018-08-13] MEDS ORDERED: ALPRAZOLAM 1 MG TAB PO SCH (10:00)
--- NOTE | 2018-08-13 15:53 | Discharge Summary ---
Providers Discharge Summary Date: 08/13/18 Date of admission: 08/10/18 16:43 Attending physician: Jose Andrew Primary care physician: ROSALINDA SAM D.O. Physical Exam - Vital Signs Vital Signs: Vital Signs - Last 24 Hrs Temp Pulse Pulse Resp BP Pulse Ox 08/13/18 13:00 97.9 F 113 H 16 126/85 91 L 08/13/18 10:24 94 L 08/13/18 10:23 91 H 18 97 08/13/18 09:00 80 08/13/18 06:22 89 18 94 L 08/13/18 05:00 97.5 F L 80 20 130/80 94 L 08/12/18 22:13 77 20 96 08/12/18 21:00 92 H 20 08/12/18 20:00 97.9 F 92 H 20 145/90 94 L 08/12/18 18:08 92 L 08/12/18 18:07 94 H 18 95 - General General Appearance: Alert, Oriented x3, Mild distress (with exertion) Limitations: No limitations - Head Head exam: Atraumatic, Normocephalic - Eye Eye exam: Normal appearance, PERRL - ENT ENT exam: Mucous membranes moist Mouth exam: Normal external inspection Teeth exam: Normal inspection - Neck Neck exam: Normal inspection - Respiratory Respiratory exam: Decreased breath sounds, Other (O2 sats 90% on 3L at rest, 90 % on 6L with exertion). negative: Accessory muscle use, Respiratory distress, Wheezes - Cardiovascular Cardiovascular Exam: Regular rate, Normal rhythm, Normal heart sounds - GI/Abdominal GI/Abdominal exam: Soft, Normal bowel sounds - Extremities Extremities exam: Normal inspection. negative: Calf tenderness, Pedal edema - Back Back exam: Reports: Normal inspection. Denies: CVA tenderness (R), CVA tenderness (L) - Neurological Neurological exam: Alert, Oriented X3 - Psychiatric Psychiatric exam: Anxious, Normal affect - Skin Skin exam: Dry, Intact, Normal color, Warm Hospitalization - Hospitalization Admission Diagnosis: LLL pneumonia. Hypoxia - Problem List/Discharge Diagnosis (1) Bilateral pneumonia Current Visit: Yes Status: Acute Base Code: J18.9 - PNEUMONIA, UNSPECIFIED ORGANISM Comment: 08/13/18 -CTA chest showed moderate emphysematous changes, unknown what baseline O2 sat is -Has approximately 25 pk/yr smoking history -At rest, O2 sat 90% on 3L per NC. With exertion, O2 sat 90% on 6L per NC. -No increased symptoms of JESSICA when ambulating -Expresses desire to go home and agrees to home O2 if qualifies -Oxygen Home Qualifier and portable O2 set up for home -Stopped IV Rocephin, changed to Augmentin 875 BID x 10 days -Has received Azithromycin 500mg PO x 3 -Oral prednisone 20mg daily x 5 days for inflammation -Albuterol inhaler 1-2 puffs q. 4 hours as needed for difficulty breathing -Trial Symbicort 2 puffs BID at home (unsure if insurance will cover) (2) Tobacco use Current Visit: Yes Status: Acute Base Code: Z72.0 - TOBACCO USE Comment: -Refusing nicotine patches -Instructed to avoid smoking while wearing oxygen (3) Chronic pain Current Visit: Yes Status: Acute Base Code: G89.29 - OTHER CHRONIC PAIN Comment: 08/12/18: -Chronic pain in neck and pain, has had several surgeries. -Continue home med Tramadol 50mg PRN -Continue Tylenol 650mg PRN (4) Sleep disturbance Current Visit: Yes Status: Acute Base Code: G47.9 - SLEEP DISORDER, UNSPECIFIED Comment: 08/12/18: -Continue home med Trazodone 50mg q. HS -Continue Prazosin 5mg q. HS (5) Hypoxia Current Visit: Yes Status: Acute Base Code: R09.02 - HYPOXEMIA Comment: : -4L O2 per high flow NC at assessment, changed to 3L on regular NC -Baseline SpO2 sat unknown -Qualified and set up for home oxygen -Stop IV antibiotics and azithromycin. Start Augmentin 876 PO BID. (6) DVT prophylaxis Current Visit: Yes Status: Acute Base Code: [id number] - Comment: 08/13/18: -Continue Lovenox daily (7) Full code status Current Visit: Yes Status: Acute Base Code: Z78.9 - OTHER SPECIFIED HEALTH STATUS Comment: 08/13/18: -Full Code this admission - Hospitalization Course Disposition: Home, Self-Care Hospital Course: Ayesha Weaver is a 53 y/o female presenting to [facility] for 3 week history of fever, cough, fatigue, and weakness. She is a current every day smoker, denies any previous hx of COPD or asthma. Does not use O2 at home. Past medical history includes insomnia, breast cancer s/p mastectomy, anxiety and depression. During hospitalization, pt received IV antiobiotics, nebulizer breathing treatments and was titrated down from 15L via Venti-mask to 3L NC. Pt adamant to return home with spouse and agreeable to do so with short term portable oxygen. Is concerned about hospital costs d/t insurance coverage. Feels better and states that breathing feels better, even though her O2 sats decrease with exertion. Procedures: Imaging and X-Rays 08/10/18 16:54 CHEST CTA w contrast [CTA] Stat Cardiology Procedures 08/10/18 16:54 Filler Sifter Helper .Continuous EKG NOW Abnormal Labs: Abnormal Lab Results 08/11/18 08/11/18 08/12/18 Range/Units 06:04 06:04 06:34 RDW 14.7 H 15.0 H (11.5-14.5) % Plt Count 535 H 545 H (130-400) K/uL Neutrophils % 86.0 H (47-80) % Band Neutrophils % 21.0 H (0-5) % Lymphocytes % 9.8 L (16-45) % Lymphocytes 10.0 L 5.0 L (16-45) % Chloride (98-107) mmol/L Random Glucose 140 H (74-109) mg/dL Total Bilirubin < 0.20 L (0.2-1.0) mg/dL Alkaline Phosphatase 119 H (35-104) U/L Albumin 3.3 L (4.0-5.0) g/dL Albumin/Globulin Ratio 0.8 L (1.1-1.8) 08/12/18 Range/Units 06:34 RDW (11.5-14.5) % Plt Count (130-400) K/uL Neutrophils % (47-80) % Band Neutrophils % (0-5) % Lymphocytes % (16-45) % Lymphocytes (16-45) % Chloride 108 H (98-107) mmol/L Random Glucose 110 H (74-109) mg/dL Total Bilirubin (0.2-1.0) mg/dL Alkaline Phosphatase 112 H (35-104) U/L Albumin 3.3 L (4.0-5.0) g/dL Albumin/Globulin Ratio 0.9 L (1.1-1.8) Condition at Discharge: (2) Stable Discharge Medications - Discharge Medications Prescriptions: Prazosin HCl [Minipress] 5 mg PO QHS 14 Days #14 capsule Albuterol Sulfate [Albuterol Sulfate Hfa] 1 - 2 puff IH Q4HR PRN #1 hfa.aer.ad PRN Reason: Difficulty In Breathing Amoxicillin/Potassium Clav [Augmentin 875Mg/125Mg] 1 each PO BID #20 tablet Budesonide/Formoterol Fumarate [Symbicort 80-4.5 Mcg Inhaler] 2 puff IH BID 14 Days #1 hfa.aer.ad Prednisone [Prednisone 20Mg] 20 mg PO DAILYWM 5 Days tab Prednisone [Prednisone 20Mg] 20 mg PO DAILY 5 Days #5 tab Home Medications: Ambulatory Orders Alprazolam 1 mg PO TID 08/10/18 [Last Taken Unknown] Propranolol HCl [Inderal LA] 60 mg PO DAILY 7 Days cap 08/10/18 [Last Taken Unknown] Tramadol HCl 50 mg PO TID PRN 08/10/18 [Last Taken Unknown] Trazodone HCl [Desyrel] 50 mg PO QHS 08/10/18 [Last Taken Unknown] Venlafaxine HCl [Effexor Xr] 75 mg PO DAILY 7 Days cap 08/10/18 [Last Taken Unknown] Acetaminophen [Tylenol 325Mg] 650 mg PO Q4H PRN tablet 08/13/18 [Last Taken Unknown] Albuterol Sulfate [Albuterol Sulfate Hfa] 1 - 2 puff IH Q4HR PRN #1 hfa.aer.ad 08/13/18 [Last Taken Unknown] Amoxicillin/Potassium Clav [Augmentin 875Mg/125Mg] 1 each PO BID #20 tablet [Last Taken Unknown] Budesonide/Formoterol Fumarate [Symbicort 80-4.5 Mcg Inhaler] 2 puff IH BID 14 Days #1 hfa.aer.ad 08/13/18 [Last Taken Unknown] Prazosin HCl [Minipress] 5 mg PO QHS 14 Days #14 capsule 08/13/18 [Last Taken Unknown] Prednisone [Prednisone 20Mg] 20 mg PO DAILY 5 Days #5 tab 08/13/18 [Last Taken Unknown] Prednisone [Prednisone 20Mg] 20 mg PO DAILYWM 5 Days tab 03/16/19 [Last Taken Unknown] Tramadol HCl [Ultram] 50 mg PO Q12HR tablet 08/13/18 [Last Taken Unknown] Trazodone HCl [Desyrel] 50 mg PO QHS tab 08/13/18 [Last Taken Unknown] Discharge Plan - Discharge Instructions Activity at Discharge: Increase Activity as Tolerated, Wear Oxygen At All Times Diet at Discharge: Advance to Usual Diet Additional Instructions: Follow up with new Primary Care Provider, Jacqueline Gordon, at [facility] on Wednesday 08/23 at 3:20. Please bring new patient paperwork to first appointment. Use Oxygen at 3L while at rest, when up moving around, you need to increase Oxygen to 6L. This is short term until you have healed from the Pneumonia. Don't smoke, especially while wearing oxygen Take Prednisone 20mg daily for 5 days Start Augmentin, take 1 pill twice a day until gone. This is an antibiotic Use Albuterol inhaler (rescue inhaler) as needed for difficulty breathing Use Symbicort 2 puffs twice a day, this opens up airways and reduces inflammation Quality Measures - Quality Measures Quality Measures: Documentation of Current Medications in Medical Record, Screening for High Blood Pressure and F/U Documented - Current Medications Quality Measure: Measure #130: Documentation of Current Medications Documentation of Current Medications: <Current Medications Documented/Reviewed> [G8427] - Blood Pressure Screening Quality Measure: Screening for High Blood Pressure and Follow-Up Documented Does Patient Have Any of the Following: No Blood Pressure Classification: Hypertensive Reading Systolic Measurement: 148 Diastolic Measurement: 95 Screening for High Blood Pressure: < First Hypertensive BP, F/U Documented > [ G8950] First Hypertensive Follow-up Interventions: Referral to alternative/primary care provider. - Elder Abuse Suspicion Index EASI Reference Information: Jeancarlos BOYER, Lorena C, Alisa D, Vazquez Menendez.Development and validation of a tool to assist physicians identification of elder abuse: The Elder Abuse Suspicion Index (EASI ). Journal of Elder Abuse and Neglect, 2008; 20 (3): 276-300.
[2018-08-13] MEDS ORDERED: AMOXICILLIN/POTASSIUM CLAV 875MG/125MG TABLET PO SCH (22:00)
== END 2018-08-13 17:00 | disposition home or self-care (01) | DRG 195 ==
LOC: MEDSURG 16:43
PROVIDERS: ADMIT Emergency Medicine; ATTEND Emergency Medicine
DX: J18.9 Pneumonia, unspecified organism (principal); R05 Cough; R09.89 Other specified symptoms and signs involving the circulatory and respiratory systems; R09.02 Hypoxemia; G47.9 Sleep disorder, unspecified; G89.29 Other chronic pain; F17.210 Nicotine dependence, cigarettes, uncomplicated; Z90.13 Acquired absence of bilateral breasts and nipples; Z85.3 Personal history of malignant neoplasm of breast
CPT/HCPCS: 71275; 80053; 83880; 84145; 84484; 85027; 87070; 87400; 93005; 93010; 94618; 94640; 94761; 99223; 99233; 99239; J0696; J1650; J1885; J2930; J7512